=== PATIENT | male | born 1985 | race Asian ===

== ENCOUNTER 2017-03-19 16:56 | Emergency (ER) | payer BC ==
--- NOTE | 2017-03-19 17:47 | ED Physician Documentation ---
History of Present Illness - Stated complaint Stated Complaint: DIZZINESS,VOMITING - Chief complaint Chief Complaint: Neuro - History obtained from History obtained from: Patient, Family - History of Present Illness Timing: Today Pain level max: 0 Pain level now: 0 Improved by: meclizine, remaining still. Worsened by: changing positions. - Additonal information Additional information: room spinning, took meclizine and is now better. Patient does have a history of vertigo. No recent illness. No recent flying. No trauma. No focal weakness or numbness. He did have vomiting earlier today, this is since resolved. Currently feels well Review of Systems Constitutional: denies: Fever, Chills Respiratory: denies: Cough GI: reports: Nausea, Vomiting. denies: Abdominal Pain, Hematemesis, Bloody / black stool Skin: denies: Rash Musculoskeletal: denies: Neck pain, Back pain Neurologic: denies: Focal weakness, Numbness, Seizure, Confused, Altered mental status, Headache PD PAST MEDICAL HISTORY - Past Medical History Past Medical History: No - Past Surgical History Past Surgical History: No - Present Medications Home Medications: Ambulatory Orders Medication Instructions Recorded Confirmed No Known Home Medications [No 03/19/17 03/19/17 Known Home Medications] - Allergies Allergies/Adverse Reactions: Allergies Allergy/AdvReac Type Severity Reaction Status Date / Time No Known Drug Allergies Allergy Verified 03/19/17 17:02 - Social History Does the pt smoke?: No Smoking Status: Never smoker Does the pt have substance abuse?: No PD ED PE NORMAL - Vitals Vital signs reviewed: Yes - General General: Alert and oriented X 3, No acute distress, Well developed/nourished - HEENT HEENT: Atraumatic, PERRL, EOMI (No nystagmus), Ears normal, Moist mucous membranes - Neck Neck: Supple, no meningeal sign - Cardiac Cardiac: RRR, Strong equal pulses - Respiratory Respiratory: No respiratory distress, Clear bilaterally - Abdomen Abdomen: Soft, Non tender, Non distended - Derm Derm: Warm and dry - Extremities Extremities: No edema - Neuro Neuro: Alert and oriented X 3, casting coordinator 2-12 intact, No motor deficit, No sensory deficit, Normal speech, Other (Normal gait. No ataxia. Normal cerebellar test. Negative Hallpike bilaterally) - Psych Psych: Normal mood, Normal affect Results - Vitals Vitals: Vital Signs - 24 hr 03/19/17 03/19/17 16:58 18:15 Temperature 36.8 C Heart Rate 76 74 Respiratory 13 16 Rate Blood Pressure 142/78 H 148/81 H O2 Saturation 99 99 Oxygen O2 Source Room air PD MEDICAL DECISION MAKING - ED course Complexity details: considered differential, d/w patient, d/w family ED course: Patient is a 32-year-old male who presents to the emergency department with what sounds like BPPV earlier today. Took meclizine prior to arrival and symptoms have now resolved. He is very well-appearing, nontoxic. No evidence of stroke. No evidence of tumor. Normal neurological tests including cerebellar tests, heel to toe walking. No recurrent vertigo here. Patient and family counseled regarding signs and symptoms for which I believe and urgent re- evaluation would be necessary. Patient with good understanding of and agreement to plan and is comfortable going home at this time This document was made in part using voice recognition software. While efforts are made to proofread this document, sound alike and grammatical errors may occur. Departure - Departure Disposition: 01 Home, Self Care Clinical Impression: BPPV (benign paroxysmal positional vertigo) Qualifiers: Laterality: unspecified laterality Qualified Code(s): H81.10 - Benign paroxysmal vertigo, unspecified ear Condition: Good Instructions: ED BPV Vertigo Follow-Up: your,doctor in 1 week [Other] [facility] [Provider Group] [facility] [Provider Group] Comments: Return if you worsen. You can try the half somersault or thierry maneuver if your symptoms recur. Your blood pressure was elevated today on check in to the emergency department. This does not mean that you have hypertension, it is a common phenomenon to check into the emergency department and have elevated blood pressure. I recommend that you see your primary care physician within the week to have it rechecked when you're feeling better. Forms: Activity restrictions Discharge Date/Time: 03/19/17 18:21
[2017-03-19 18:16] VITALS: BP 148/81
== END 2017-03-19 18:21 | disposition home or self-care (01) ==
LOC: ED 16:56
DX: H81.10 Benign paroxysmal vertigo, unspecified ear (principal); R03.0 Elevated blood-pressure reading, without diagnosis of hypertension
CPT/HCPCS: 99282; 99283